=== PATIENT | male | born 1940 | race Caucasian/White ===

== ENCOUNTER 2017-05-18 08:10 | Emergency (ER) | payer MEDICARE, MEDICAID ==
[2017-05-18 08:53] VITALS: BMI 28.1
[2017-05-18 09:18] LABS: BASO % 0.5 % (0.0-2.0); EOS # 0.2 K/uL (0.0-0.7); EOS % 2.4 % (0.0-4.0); HEMATOCRIT 40.5 % (35.0-51.0); LYMPH # 2.3 K/uL (1.0-4.3); LYMPH % 31.3 % (20.0-40.0); MEAN CELL VOLUME 98.9 fL (80.0-94.0); MEAN CORPUSCULAR HEMOGLOBIN 34.4 pg (27.0-31.0); MEAN CORPUSCULAR HGB CONC 34.8 g/dL (33.0-37.0); MEAN PLATELET VOLUME 7.7 fL (7.2-11.7); MONO # 0.6 K/uL (0.0-0.8); MONO % 8.2 % (0.0-10.0); RED CELL DISTRIBUTION WIDTH 14.3 % (11.5-14.5); WHITE BLOOD COUNT 7.4 K/uL (4.8-10.8)
--- NOTE | 2017-05-18 09:23 | RAD ---
PROCEDURE: CHEST RADIOGRAPH, 1 VIEW HISTORY: syncope COMPARISON: None available. FINDINGS: LUNGS: No definite infiltrate is appreciated bilaterally. Inspiratory volume appears somewhat limited bilaterally. PLEURA: No pneumothorax or pleural fluid seen. CARDIOVASCULAR: Normal. OSSEOUS STRUCTURES: No significant abnormalities. VISUALIZED UPPER ABDOMEN: Normal. OTHER FINDINGS: None. IMPRESSION: Somewhat limited inspiratory volume however there is no acute infiltrate pleural effusion or pneumothorax identified bilaterally.
[2017-05-18 09:24] LABS: CHLORIDE 106 mmol/L (98-107); POTASSIUM 4.3 mmol/L (3.6-5.2); SODIUM 139 mmol/L (132-148)
[2017-05-18 09:26] LABS: ALB/GLOB RATIO 1.3 (1.0-2.1); ALKALINE PHOSPHATASE 61 U/L (38-126); AST/SGOT 52 U/L (17-59); BILIRUBIN,TOTAL 0.7 mg/dL (0.2-1.3); CARBON DIOXIDE 19 mmol/L (22-30); GFR AFRICAN-AMERICAN > 60; TOTAL PROTEIN 7.5 g/dL (6.3-8.3)
[2017-05-18 09:27] LABS: ALT/SGPT 53 U/L (21-72); BLOOD UREA NITROGEN 13 mg/dL (9-20); CALCIUM 8.7 mg/dl (8.6-10.4); GLUCOSE,RANDOM 114 mg/dL (75-110)
--- NOTE | 2017-05-18 09:46 | C.PDOC ---
History Of Present Illness 77 y/o male presents to ED for evaluation of syncopal episode this morning. Patient states that he felt dizzy and fell, hitting the left side of his head against the corner of a table. Patient sustained injuries to left side of face, and eye. Patient denies any chest pain, shortness of breath, headache, nausea, vomiting, fever, or chills. Chief Complaint (Nursing): Syncope History Per: Patient History/Exam Limitations: no limitations Onset/Duration Of Symptoms: Hrs Current Symptoms Are (Timing): Still Present Additional History Per: Patient Past Medical History Reviewed: Historical Data, Nursing Documentation, Vital Signs Vital Signs: Last Vital Signs Temp 98.9 F 05/18/17 08:38 Pulse 64 05/18/17 12:08 Resp 18 05/18/17 12:08 BP 139/75 05/18/17 12:08 Pulse Ox 98 05/18/17 12:34 - Medical History PMH: HTN Family History: States: Unknown Family Hx - Social History Hx Alcohol Use: Yes Hx Substance Use: No - Immunization History Hx Tetanus Toxoid Vaccination: Yes Hx Influenza Vaccination: Yes Hx Pneumococcal Vaccination: Yes Review Of Systems Except As Marked, All Systems Reviewed And Found Negative. Constitutional: Negative for: Fever, Chills Cardiovascular: Negative for: Chest Pain, Palpitations Respiratory: Negative for: Cough, Shortness of Breath Gastrointestinal: Negative for: Nausea, Vomiting, Abdominal Pain Skin: Positive for: Bruising (left side of face) Neurological: Positive for: Dizziness, Other (syncope). Negative for: Weakness , Numbness, Headache Physical Exam - Physical Exam Appears: Non-toxic, No Acute Distress Skin: Warm, Dry, Ecchymosis (left side of face) Head: Normacephalic, Tenderness (bony tenderness to left side of face), Swelling (left side of face) Eye(s): bilateral: Eyelid Inflammation (pt unable to open eyes secondary to swelling) Nose: Normal Oral Mucosa: Moist Neck: Normal ROM, Supple Chest: Symmetrical Cardiovascular: Rhythm Regular, No Murmur Respiratory: Normal Breath Sounds, No Rales, No Rhonchi, No Wheezing Gastrointestinal/Abdominal: Soft, No Tenderness Back: No CVA Tenderness Extremity: Normal ROM, No Tenderness, No Deformity Extremity: Bilateral: Atraumatic Neurological/Psych: Oriented x3, Normal Speech ED Course And Treatment - Laboratory Results Result Diagrams: 05/18/17 09:11 05/18/17 09:11 ECG: Interpreted By Me, Viewed By Me ECG Rhythm: Sinus Rhythm ECG Interpretation: Normal Interpretation Of ECG: No acute ST/T wave changes. Rate From EC (bpm) O2 Sat by Pulse Oximetry: 98 (on RA) Pulse Ox Interpretation: Normal - Other Rad Chest x-ray X-Ray: Viewed By Me, Read By Radiologist Interpretation: Accession No. : [id number]. Patient Name / ID : LEVY Hassan [id number]. Exam Date : 05/18/2017 09:01:43 ( Approved ). Study Comment : Sex / Age : M / 77Y. Creator : Sammy Coker MD. Dictator : Sammy Coker MD. Hand Trucker : Slip Cover Cutter : Sammy Coker MD. Approver2 : Report Date : 05/18/2017 09:22:02. My Comment : . PROCEDURE: CHEST RADIOGRAPH, 1 VIEW. HISTORY: syncope. COMPARISON: None available. FINDINGS: LUNGS: No definite infiltrate is appreciated bilaterally. Inspiratory volume appears somewhat limited bilaterally. PLEURA: No pneumothorax or pleural fluid seen. CARDIOVASCULAR: Normal. OSSEOUS STRUCTURES: No significant abnormalities. VISUALIZED UPPER ABDOMEN: Normal. OTHER FINDINGS: None. IMPRESSION: Somewhat limited inspiratory volume however there is no acute infiltrate pleural effusion or pneumothorax identified bilaterally. - CT Scan/US Head CT Other Rad Studies (CT/US): Read By Radiologist, Radiology Report Reviewed CT/US Interpretation: Accession No. : [id number]. Patient Name / ID : LEVY Hassan [id number]. Exam Date : 05/18/2017 09:31:46 ( Approved ). Study Comment : Sex / Age : M / 77Y. Creator : Alaina Villegas MD. Dictator : Alaina Villegas MD. Hand Trucker : Slip Cover Cutter : Alaina Villegas MD. Approver2 : Report Date : 05/18/2017 10:09:30. My Comment : . PROCEDURE: CT HEAD WITHOUT CONTRAST. HISTORY: syncope, trauma. COMPARISON: None available. TECHNIQUE: Axial computed tomography images were obtained through the head/brain without intravenous contrast. Radiation dose: Total exam DLP = 982.82 mGy-cm. This CT exam was performed using one or more of the following dose reduction techniques: Automated exposure control, adjustment of the mA and/ or kV according to patient size, and/or use of iterative reconstruction technique. FINDINGS: HEMORRHAGE: No intracranial hemorrhage. BRAIN: Diffuse atrophy with prominence of the ventricles and sulci noted. No mass effect or edema. Scattered periventricular and subcortical white matter hypodensities, which are nonspecific, but often seen with chronic microvascular ischemic disease. Please note that MRI with diffusion imaging is more sensitive in the detection of acute ischemic event. VENTRICLES: No hydrocephalus. CALVARIUM: Unremarkable. PARANASAL SINUSES: Mucosal thickening of the ethmoid air cells. MASTOID AIR CELLS: Unremarkable as visualized. No inflammatory changes. OTHER FINDINGS: Left preseptal soft tissue swelling. Small left scalp hematoma. IMPRESSION: Left preseptal soft tissue swelling and left scalp hematoma. Generalized atrophy. Nonspecific white matter changes. Mucosal thickening of the ethmoid air cells. Correlate for chronic sinusitis. Orbits CT Other Rad Studies (CT/US): Read By Radiologist, Radiology Report Reviewed CT/US Interpretation: Accession No. : [id number]. Patient Name / ID : LEVY MCCRARY / [id number]. Exam Date : 05/18/2017 09:34:47 ( Approved ). Study Comment : Sex / Age : M / 77Y. Creator : Neva Cervantes MD. Dictator : Neva Cervantes MD. Hand Trucker : Slip Cover Cutter : Neva Cervantes MD. Approver2 : Report Date : 05/18/2017 10:36:00. My Comment : . PROCEDURE: CT ORBITS WITHOUT CONTRAST. HISTORY: Syncope, fall, left orbit/face injury. COMPARISON: None available. TECHNIQUE: Axial CT images of the orbits were obtained. Coronal and sagittal reformats were generated. Radiation dose: Total exam DLP = 73.50 mGy-cm. This CT exam was performed using one or more of the following dose reduction techniques: Automated exposure control, adjustment of the mA and/or kV according to patient size, and/or use of iterative reconstruction technique. FINDINGS: RIGHT ORBIT: RIGHT BONY ORBIT: Normal. RIGHT INTRAORBITAL STRUCTURES: Globe: Normal. Extraocular muscles: Normal. Post septal space: Normal. Optic Nerve: Normal. Lacrimal Apparatus: Normal. RIGHT PRESEPTAL SOFT TISSUES: Normal. LEFT ORBIT: LEFT BONY ORBIT: Normal. LEFT INTRAORBITAL STRUCTURES: Globe: Normal. Extraocular muscles: Normal. Post septal space: Normal. Optic Nerve: Normal. . Lacrimal Apparatus: Normal. LEFT PRESEPTAL SOFT TISSUES: There is moderate periorbital soft tissue swelling and small soft tissue hematoma in the infraorbital soft tissues with a focus of air in the subcutaneous tissues likely related to laceration. OTHER: There is mild mucosal thickening in the ethmoid air cells and maxillary sinuses. The remaining included paranasal sinuses and mastoid air cells are predominantly clear. IMPRESSION: No acute orbital or maxillofacial fracture. Moderate left periorbital soft tissue swelling and small hematoma in the deep infraorbital soft tissues with a focus of air in the subcutaneous tissue likely related to laceration. Medical Decision Making Medical Decision Making: Blood work, UA, EKG, CXR Head CT, Orbits CT scan ordered and reviewed. Patient was given Morphine IVP. Spoke with patient's PMD, Dr. Ángel Callahan, who request patient to be transported to [facility] under his service. Dr. Callahan also states patient has history of frequent syncopal episodes over the past several days, and notes patient has severe CAD which would require CABG soon. Spoke with patient's caridologist, Dr. Jay, who requests to transfer to [facility] for cardiac surgery. Spoke with Thelma at transfer center at [facility], arrangements made to transfer patient via ALS. Disposition - Disposition Disposition: Trans to Other Acute Care Hosp Disposition Time: 12:00 Condition: FAIR Forms: [facility] (Citizen Of [place]) - Clinical Impression Clinical Impression: Syncope, Head injury, Contusion of face - PA / COPIER TECHNICIAN / Resident Statement MD/DO has reviewed & agrees with the documentation as recorded. - Scribe Statement The provider has reviewed the documentation as recorded by the Scribe Britton Dunbar All medical record entries made by the Yesiibfacundo were at my direction and personally dictated by me. I have reviewed the chart and agree that the record accurately reflects my personal performance of the history, physical exam, medical decision making, and the department course for this patient. I have also personally directed, reviewed, and agree with the discharge instructions and disposition.
--- NOTE | 2017-05-18 10:11 | CT ---
PROCEDURE: CT HEAD WITHOUT CONTRAST. HISTORY: syncope, trauma COMPARISON: None available. TECHNIQUE: Axial computed tomography images were obtained through the head/brain without intravenous contrast. Radiation dose: Total exam DLP = 982.82 mGy-cm. This CT exam was performed using one or more of the following dose reduction techniques: Automated exposure control, adjustment of the mA and/or kV according to patient size, and/or use of iterative reconstruction technique. FINDINGS: HEMORRHAGE: No intracranial hemorrhage. BRAIN: Diffuse atrophy with prominence of the ventricles and sulci noted. No mass effect or edema. Scattered periventricular and subcortical white matter hypodensities, which are nonspecific, but often seen with chronic microvascular ischemic disease. Please note that MRI with diffusion imaging is more sensitive in the detection of acute ischemic event. VENTRICLES: No hydrocephalus. CALVARIUM: Unremarkable. PARANASAL SINUSES: Mucosal thickening of the ethmoid air cells. MASTOID AIR CELLS: Unremarkable as visualized. No inflammatory changes. OTHER FINDINGS: Left preseptal soft tissue swelling. Small left scalp hematoma. IMPRESSION: Left preseptal soft tissue swelling and left scalp hematoma. Generalized atrophy. Nonspecific white matter changes. Mucosal thickening of the ethmoid air cells. Correlate for chronic sinusitis.
--- NOTE | 2017-05-18 10:37 | CT ---
PROCEDURE: CT ORBITS WITHOUT CONTRAST. HISTORY: Syncope, fall, left orbit/face injury COMPARISON: None available. TECHNIQUE: Axial CT images of the orbits were obtained. Coronal and sagittal reformats were generated. Radiation dose: Total exam DLP = 73.50 mGy-cm. This CT exam was performed using one or more of the following dose reduction techniques: Automated exposure control, adjustment of the mA and/or kV according to patient size, and/or use of iterative reconstruction technique. FINDINGS: RIGHT ORBIT: RIGHT BONY ORBIT: Normal. RIGHT INTRAORBITAL STRUCTURES: Globe: Normal. Extraocular muscles: Normal. Post septal space: Normal. Optic Nerve: Normal. Lacrimal Apparatus: Normal. RIGHT PRESEPTAL SOFT TISSUES: Normal. LEFT ORBIT: LEFT BONY ORBIT: Normal. LEFT INTRAORBITAL STRUCTURES: Globe: Normal. Extraocular muscles: Normal. Post septal space: Normal Optic Nerve: Normal. . Lacrimal Apparatus: Normal. LEFT PRESEPTAL SOFT TISSUES: There is moderate periorbital soft tissue swelling and small soft tissue hematoma in the infraorbital soft tissues with a focus of air in the subcutaneous tissues likely related to laceration. OTHER: There is mild mucosal thickening in the ethmoid air cells and maxillary sinuses. The remaining included paranasal sinuses and mastoid air cells are predominantly clear. IMPRESSION: No acute orbital or maxillofacial fracture. Moderate left periorbital soft tissue swelling and small hematoma in the deep infraorbital soft tissues with a focus of air in the subcutaneous tissue likely related to laceration.
[2017-05-18 13:57] VITALS: O2SAT 97
[2017-05-18 15:22] VITALS: BP 136/73; PULSE 67; RESP 20; TEMP 98.5
== END 2017-05-18 15:25 | disposition short-term general hospital (02) ==
LOC: C.ER 08:10
DX: R55 Syncope and collapse (principal); S00.83XA Contusion of other part of head, initial encounter; S09.90XA Unspecified injury of head, initial encounter; W18.09XA Striking against other object with subsequent fall, initial encounter; I10 Essential (primary) hypertension
CPT/HCPCS: 70450; 70480; 71010; 80053; 82550; 82553; 83880; 84484; 85025; 85610; 85730; 96374; 99285; J2270